=== PATIENT | male | born 1960 | race Caucasian/White ===

== ENCOUNTER 2019-03-15 10:10 | Emergency (ER) | payer OTHER ==
[~2019-03-15] VITALS: Ht 177.8 cm; Wt 81.6 kg
[2019-03-15 10:27] VITALS: BP_SYST 128
--- NOTE | 2019-03-15 10:32 | NUR ---
Patient to ER bed 1 to gown for evaluation. Side rails up. Report given to Bonita GIBSON.
--- NOTE | 2019-03-15 10:34 | NUR ---
Pt brought by self, A&Ox4, pt presents to ER with R earache 4/10 radiating to head, denies dizziness, skin pink and warm, cap refill <3, VSS, afebrile.
--- NOTE | 2019-03-15 10:39 | NUR ---
Dr Tuttle at bedside examining patient
--- NOTE | 2019-03-15 10:51 | NUR ---
Patient given written and verbal discharge instructions and verbalizes understanding. ER MD discussed with patient the results and treatment provided. Patient in stable condition. ID arm band removed. Rx of Cortisporin,keflex and Motrin given. Patient educated on pain management and to follow up with PMD. Pain Scale 2/10 tolerable for pt. Opportunity for questions provided and answered. Medication side effect fact sheet provided.
--- NOTE | 2019-03-15 10:51 | NUR ---
Note undone in EDM - 03/15/19 at 1051 by [email or web address] Patient given written and verbal discharge instructions and verbalizes understanding. ER discussed with patient the results and treatment provided. Patient in stable condition. ID arm band removed. IV catheter removed intact and dressing applied, no active bleeding. Rx of Cortisporin,keflex and Motrin given. Patient educated on pain management and to follow up with PMD. Pain Scale 2/10 tolerable for pt. Opportunity for questions provided and answered. Medication side effect fact sheet provided.
== END 2019-03-15 10:51 | disposition home or self-care (01) ==
LOC: SED 10:10
DX: H60.91 Unspecified otitis externa, right ear (principal); I10 Essential (primary) hypertension
CPT/HCPCS: 99283